=== PATIENT | male | born 1960 | race Caucasian/White ===

== ENCOUNTER 2022-05-08 10:16 | Emergency (ER) | payer MEDICARE, OTHER ==
[~2022-05-08] VITALS: Ht 172.7 cm; Wt 80.3 kg
[2022-05-08 12:01] LABS: BASOPHILS % (AUTO) 0.7 % (0.0-5.0); EOSINOPHILS % (AUTO) 1.5 % (0.0-8.0); HEMATOCRIT 48.1 % (42-54); LYMPHOCYTES % (AUTO) 24.7 % (21.0-51.0); MEAN CORPUSCULAR HEMOGLOBIN 26.5 pg (27.0-33.0); MEAN CORPUSCULAR HGB CONC 31.6 g/dL (32.0-36.0); MEAN CORPUSCULAR VOLUME 83.8 fL (79-99); MONOCYTES % (AUTO) 6.5 % (3.0-13.0); NEUTROPHILS % (AUTO) 66.2 % (40.0-77.0); PLATELET COUNT (AUTO) 259 K/uL (130-400); RED BLOOD CELL COUNT(AUTO) 5.74 MIL/uL (4.50-6.20); RED CELL DISTRIBUTION WIDTH 13.8 % (11.0-15.5); WHITE BLOOD COUNT (AUTO) 11.2 K/uL (4.8-10.8)
[2022-05-08 12:12] LABS: CREATININE 0.9 mg/dL (0.5-1.5); POTASSIUM 4.7 mmol/L (3.5-5.1)
[2022-05-08 12:17] LABS: ALBUMIN 3.8 g/dL (3.5-5.0); TOTAL PROTEIN, SERUM 7.8 g/dL (6.0-8.3)
[2022-05-08] MEDS ORDERED: IOHEXOL 350 MG/ML 100ML INFUS..BTL IV ONE (12:39)
[2022-05-08 13:46] LABS: APPEARANCE,URINE CLEAR (CLEAR); BILIRUBIN,URINE NEGATIVE (NEGATIVE); COLOR,URINE YELLOW (YELLOW); GLUCOSE, URINE (UA) NEGATIVE (NEGATIVE); KETONES,URINE NEGATIVE (NEGATIVE); LEUKOCYTE ESTERASE ,URINE NEGATIVE Leu/uL (NEGATIVE); NITRATE,URINE NEGATIVE (NEGATIVE); OCCULT BLOOD,URINE NEGATIVE (NEGATIVE); PROTEIN,URINE NEGATIVE (NEGATIVE); UROBILINOGEN,URINE 0.2 mg/dL (0.2-1.0)
[2022-05-08] MEDS ORDERED: KETOROLAC 30MG VIAL (30MG/ML) IM ONE (15:00)
[2022-05-08] MEDS ORDERED: SOLU-MEDROL 125MG VIAL IM ONE (15:00)
[2022-05-08 15:10] VITALS: BP 126/78
== END 2022-05-08 15:12 | disposition home or self-care (01) ==
LOC: EDH 10:16
DX: M54.50 Low back pain, unspecified (principal); E78.00 Pure hypercholesterolemia, unspecified; I10 Essential (primary) hypertension
CPT/HCPCS: 99285; 72133; 80053; 85025; 81003; 36415; 96372; J2930; Q9967